=== PATIENT | female | born 1945 | race Caucasian/White ===

== ENCOUNTER 2024-05-15 06:21 | Emergency (ER) | payer OTHER ==
[~2024-05-15] VITALS: Ht 162.6 cm; Wt 68.2 kg
--- NOTE | 2024-05-15 06:43 | ED.PDOC ---
History of Present Illness HPI Comments 79-year-old female who comes in with chief complaint of possible syncopal episode x2. The patient was currently visiting from [place]. Last night, the patient states that she felt okay but she did have a cough over the past couple of days. According to the patient's , he found her this morning on the side of the bed and she has a hematoma to the occipital region. The patient had a syncopal episode prior to the 2nd episode that she had at home. When the paramedics arrived, they found the patient on the floor but she was alert and oriented and was able to answer all questions appropriately. Upon arrival, the patient denies any chest pain or shortness for breath. The patient denies any nausea, vomiting or diarrhea. The patient states that she is having some dizziness especially when she sits up. She denies any history of this in the past. The patient had stable vital signs upon arrival. Chief Complaint: Fall Injury Time Seen by MD: 06:31 Reviewed Notes: Nurses Notes, Heavy Equipment Service Manager Notes, Medications, Allergies (No known allergy) Allergies: Coded Allergies: NO KNOWN ALLERGIES (Unverified , 05/15/24) Information Source: Patient, Emergency Med Personnel Mode of Arrival: EMS Severity: Moderate Timing: Hours Duration: Intermittent Prehospital treatment: 12 Lead EKG, Accucheck (142), Fruit Packer, IVF Location: Occipital hematoma Associated signs and symptoms Associated dizziness as well as a cough Past Medical History PAST MEDICAL HISTORY: HTN Surgical History: Tonsillectomy Surgical History (Other): Cataract surgery, left shoulder surgery 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: No Pertinent 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 Family History Family History: Family hx of DM Social History Smoker: Non-Smoker Alcohol: Denies ETOH Use Drugs: Denies Drug Use Lives In: Home Physical Exam General Appearance: Mild Distress HEENT: Normal ENT Inspection, Pharynx Normal, TMs Normal Neck: Full Range of Motion, Non-Tender, Normal, Normal Inspection Respiratory: Chest Non-Tender, Lungs Clear, No Accessory Muscle Use, No Respiratory Distress, Normal Breath Sounds Cardiovascular: No Edema, No JVD, No Murmur, No Gallop, Normal Peripheral P ulses, Regular Rate/Rhythm Breast Exam: Deferred Gastrointestinal: No Organomegaly, Non Tender, No Pulsatile Mass, Normal Bowel Sounds, Soft Genitalia: Deferred Pelvic: Deferred Rectal: Deferred Extremities: No calf tenderness, Normal capillary refill, No pedal edema Musculoskeletal : Apperance: Normal Neurologic: Alert, skiver hand II-XII nml as Tested, Motor Weakness, Normal Affect, Normal Mood, No Sensory Deficits Cerebellar Function: Normal Reflexes: Normal Skin: Dry, Normal Color, Warm Lymphatic: No Adenopathy Was a procedure done? Was a procedure done?: No Differential Dx Considerations may include: Syncope, autonomic dysfunction, COVID-19, GA, ACS, seizure, dehydration, UTI X-Ray, Labs, Meds, VS Vital Signs Date Time Temp Pulse Resp B/P (MAP) Pulse Ox O2 Delivery O2 Flow Rate FiO2 05/15/24 11:08 Room Air* 0 21 05/15/24 11:06 98.0 65 17 121/76 (91) 97 98.0 05/15/24 06:25 98.5 90 14 128/65 (86) 99 05/15/24 06:25 89 Lab Test 05/15/24 09:59 05/15/24 07:55 05/15/24 06:55 Range/Units Troponin I High Sensitivity 5 4 5 </=34 ng/L White Blood Count 2.1 L 4.4-10.8 10^3/uL Red Blood Count 4.49 4.0-5.20 10^6/uL Hemoglobin 13.6 12.2-16.2 g/dL Hematocrit 38.4 36.0-46.0 % Mean Corpuscular Volume 85.5 80.0-100.0 fL Mean Corpuscular Hemoglobin 30.4 28.0-32.0 pg Mean Corpuscular Hemoglobin Concent 35.5 32.0-36.0 g/dL Red Cell Distribution Width 13.5 11.8-14.3 % Platelet Count 225 140-450 10^3/uL Mean Platelet Volume 7.0 6.9-10.8 fL Neutrophils (%) (Auto) 57.2 37.0-80.0 % Lymphocytes (%) (Auto) 26.0 10.0-50.0 % Monocytes (%) (Auto) 15.5 H 0.0-12.0 % Eosinophils (%) (Auto) 0.4 0.0-7.0 % Basophils (%) (Auto) 0.9 0.0-2.0 % Neutrophils # (Auto) 1.2 L 1.6-8.6 10 ^3/uL Lymphocytes # (Auto) 0.5 0.4-5.4 10 ^3/uL Monocytes # (Auto) 0.3 0-1.3 10 ^3/uL Eosinophils # (Auto) 0 0-0.8 10 ^3/uL Basophils # (Auto) 0 0-0.2 10 ^3/uL Nucleated Red Blood Cells 0.5 % Sodium Level 125 L 136-145 mmol/L Potassium Level 3.2 L 3.5-5.1 mmol/L Chloride Level 90 L 98-107 mmol/L Carbon Dioxide Level 24 20-31 mmol/L Anion Gap 11 5-15 Blood Urea Nitrogen 8 L 9-23 mg/dL Creatinine 1.17 H 0.550-1.02 mg/dL Glomerular Filtration Rate Calc 47 >90 mL/min BUN/Creatinine Ratio 6.8 L 10.0-20.0 Serum Glucose 101 74-106 mg/dL Calcium Level 9.5 8.7-10.4 mg/dL CT scan of the head is negative The chest x-ray is negative The CBC and chemistry panel are within normal limits except for hyponatremia at 325 The potassium is 3.2 The patient's has arrived and states that he wants to take the patient home. We explained to him that there are some abnormal labs but he states that because the patient was still laying here in the hallway he wants to have the patient go home. They have now signed out against medical advice. Images Reviewed?: Images reviewed and evaluated by me Time of 1ST Reevaluation: 06:42 Reevaluation 1ST: Unchanged Patient Education/Counseling: Diagnosis, Treatment, Prognosis Family Education/Counseling: Diagnosis, Treatment, Prognosis Departure 1 Departure Time of Disposition: 12:21 Impression: Primary Impression: Episode of syncope Qualified Codes: R55 - Syncope and collapse Additional Impression: Hypokalemia Disposition: 07 LEFT AGAINST MEDICAL ADVICE Condition: Fair Critical Care Note Critical Care Time?: No Stability Stability form required: Yes Unstable for transfer: Telemetry monitoring (Telemetry monitoring required), ED Physician Assesment (Clinical assesment) Heart Score Heart Score: Heart Score Response (Comments) Value History Slightly Suspicious 0 EKG Normal 0 Age >65 2 Risk Factors 1 or 2 risk factors 1 Troponin N/A 0 Total 3 GIAN BECKHAM MD May 15, 2024 06:43
--- NOTE | 2024-05-15 06:48 | ECG ---
[facility] Test Date: 2024-05-15 Test Time: 06:25:45 Pat Name: KEO MCCARTNEY Department: ED Room: Gender: F Teletype Mechanic: : [id number] Requested By: GIAN BECKHAM Order Number: [id number] Reading MD: Ld Bearedn Measurements Intervals Eleva Rate: 89 P: 69 OK: 166 QRS: 22 QRSD: 97 T: 65 QT: 376 QTc: 458 Interpretive Statements Sinus rhythm Consider left atrial enlargement Low voltage, extremity leads Electronically Signed On 05-17-2024 16:13:01 PST by Ld Bearden Please click the below link to view image of tracing.
[2024-05-15 07:30] LABS: Anion Gap 11 (5-15); Calcium 9.5 mg/dL (8.7-10.4); Carbon Dioxide 24 mmol/L (20-31)
[2024-05-15 07:33] LABS: Basophils # (auto) 0 10 ^3/uL (0-0.2); Basophils % (auto) 0.9 % (0.0-2.0); Eosinophils # (auto) 0 10 ^3/uL (0-0.8); Eosinophils % (auto) 0.4 % (0.0-7.0); Hematocrit 38.4 % (36.0-46.0); Hemoglobin 13.6 g/dL (12.2-16.2); Lymphocytes # (auto) 0.5 10 ^3/uL (0.4-5.4); Mean Corpuscular Hemoglobin 30.4 pg (28.0-32.0); Mean Corpuscular Hgb Conc. 35.5 g/dL (32.0-36.0); Mean Corpuscular Volume 85.5 fL (80.0-100.0); Monocytes # (auto) 0.3 10 ^3/uL (0-1.3); Monocytes % (auto) 15.5 % (0.0-12.0); Neutrophils # (auto) 1.2 10 ^3/uL (1.6-8.6); Neutrophils % (auto) 57.2 % (37.0-80.0); Nucleated Red Blood Cells % 0.5 %; Platelet Count (auto) 225 10^3/uL (140-450); Red Blood Cells 4.49 10^6/uL (4.0-5.20); Red Cell Distribution Width 13.5 % (11.8-14.3); White Blood Cell 2.1 10^3/uL (4.4-10.8)
[2024-05-15 07:35] LABS: BUN/Creatinine Ratio 6.8 (10.0-20.0); Glucose 101 mg/dL (74-106)
[2024-05-15 07:37] LABS: Blood Urea Nitrogen 8 mg/dL (9-23); Chloride 90 mmol/L (98-107); Potassium 3.2 mmol/L (3.5-5.1); Sodium 125 mmol/L (136-145)
--- NOTE | 2024-05-15 09:20 | DVH ---
CHEST RADIOGRAPH Indication: cough Technique: Single frontal view of the chest was obtained Comparison: None FINDINGS: Lines and Tubes: None Lungs: No focal consolidation. Pleura: No effusion. No pneumothorax. Cardiomediastinal contours: Unremarkable Bones: No acute osseous abnormality. IMPRESSION: No acute cardiopulmonary disease.
--- NOTE | 2024-05-15 09:23 | DVH ---
EXAM: CT HEAD WITHOUT CONTRAST INDICATION: fall TECHNIQUE: CT of the head without intravenous contrast. Coronal and sagittal reformatted images are submitted. Radiation Dose : 1. Head: CT Dose: CTDI volume is 52.97 mGy. Dose-length product is 938.06 mGy*cm The dose indicators for CT are the volume Computed Tomography (CT) Dose Index (CTDIvol) and the Dose Length Product (DLP), and are measured in units of mGy and mGy-cm, respectively. These indicators are not patient dose, but values generated from the CT scanner acquisition factors. The report includes radiation exposure data for exposures received during this examination. All CT scans at this medical facility are performed using dose modulation techniques as appropriate to a performed exam including the following: Automated exposure control was utilized; adjustment of the MA and/or KV according to patient size; and use of iterative reconstruction technique. COMPARISON: None FINDINGS: There is no evidence of acute intracranial hemorrhage, extra-axial collection, mass effect, midline s hift, herniation or hydrocephalus. There are periventricular and subcortical hypodensities, nonspecific, but likely reflecting sequelae of chronic microvascular ischemic changes. The ventricles, sulci and cisterns are age appropriate. The angela-white differentiation is intact. The visualized paranasal sinuses and mastoid air cells are clear. No depressed calvarial fracture. The surrounding soft tissues are unremarkable. IMPRESSION: 1. No evidence of acute intracranial abnormality.
--- NOTE | 2024-05-15 10:12 | DVHHP2 ---
Review of Systems Allergies: Coded Allergies: NO KNOWN ALLERGIES (Unverified , 05/15/24) Exam Vital Signs Vital Signs Date Time Temp Pulse Resp B/P (MAP) Pulse Ox O2 Delivery O2 Flow Rate FiO2 05/15/24 06:25 98.5 90 14 128/65 (86) 99 Labs/Xrays Labs Test 05/15/24 07:55 05/15/24 06:55 Range/Units Troponin I High Sensitivity 4 </=34 ng/L White Blood Count 2.1 L 4.4-10.8 10^3/uL Red Blood Count 4.49 4.0-5.20 10^6/uL Hemoglobin 13.6 12.2-16.2 g/dL Hematocrit 38.4 36.0-46.0 % Mean Corpuscular Volume 85.5 80.0-100.0 fL Mean Corpuscular Hemoglobin 30.4 28.0-32.0 pg Mean Corpuscular Hemoglobin Concent 35.5 32.0-36.0 g/dL Red Cell Distribution Width 13.5 11.8-14.3 % Platelet Count 225 140-450 10^3/uL Mean Platelet Volume 7.0 6.9-10.8 fL Neutrophils (%) (Auto) 57.2 37.0-80.0 % Lymphocytes (%) (Auto) 26.0 10.0-50.0 % Monocytes (%) (Auto) 15.5 H 0.0-12.0 % Eosinophils (%) (Auto) 0.4 0.0-7.0 % Basophils (%) (Auto) 0.9 0.0-2.0 % Neutrophils # (Auto) 1.2 L 1.6-8.6 10 ^3/uL Lymphocytes # (Auto) 0.5 0.4-5.4 10 ^3/uL Monocytes # (Auto) 0.3 0-1.3 10 ^3/uL Eosinophils # (Auto) 0 0-0.8 10 ^3/uL Basophils # (Auto) 0 0-0.2 10 ^3/uL Nucleated Red Blood Cells 0.5 % Sodium Level 125 L 136-145 mmol/L Potassium Level 3.2 L 3.5-5.1 mmol/L Chloride Level 90 L 98-107 mmol/L Carbon Dioxide Level 24 20-31 mmol/L Anion Gap 11 5-15 Blood Urea Nitrogen 8 L 9-23 mg/dL Creatinine 1.17 H 0.550-1.02 mg/dL Glomerular Filtration Rate Calc 47 >90 mL/min BUN/Creatinine Ratio 6.8 L 10.0-20.0 Serum Glucose 101 74-106 mg/dL Calcium Level 9.5 8.7-10.4 mg/dL Billing Provider: BENNETT GODDARD SALINA K FNP May 15, 2024 10:12
[2024-05-15 11:06] VITALS: BP 121/76; PULSE 65; RESP 17; TEMP 98; O2SAT 97
== END 2024-05-15 12:03 | disposition left against medical advice (07) ==
LOC: ER 06:21 → EDBD 06:21 → ER 11:56
DX: R55 Syncope and collapse (principal); E87.6 Hypokalemia; R42 Dizziness and giddiness; I10 Essential (primary) hypertension; Z90.89 Acquired absence of other organs
CPT/HCPCS: 36415; 70450; 71045; 80048; 84484; 85025; 93005